=== PATIENT | male | born 1970 | race Asian ===

== ENCOUNTER 2023-10-04 10:23 | Outpatient (CLI) | payer MEDICARE, SELFPAY | END 2023-10-04 10:24 | disposition home or self-care (01) | LOC: NFLDREF 13:13 | PROVIDERS: PCP Physician Assistant Medical; Referring Provider Physician Assistant Medical; Visit Provider Physician Assistant Medical | DX: Z13.6 Encounter for screening for cardiovascular disorders (principal); Z13.29 Encounter for screening for other suspected endocrine disorder; Z12.5 Encounter for screening for malignant neoplasm of prostate; Z13.9 Encounter for screening, unspecified | CPT/HCPCS: 80053; 80061; 84443; G0103 ==

== ENCOUNTER 2024-10-19 15:45 | Outpatient (CLI) | payer OTHER, SELFPAY | END 2024-10-19 15:46 | disposition home or self-care (01) | LOC: NFLDREF 10-22 05:21 | PROVIDERS: PCP Physician Assistant Medical; Referring Provider Physician Assistant Medical; Visit Provider Physician Assistant Medical | DX: Z12.5 Encounter for screening for malignant neoplasm of prostate (principal); R79.89 Other specified abnormal findings of blood chemistry | CPT/HCPCS: 80053; G0103 ==